=== PATIENT | female | born 1970 | race Caucasian/White ===

== ENCOUNTER 2019-08-11 19:03 | Emergency (ER) | payer OTHER ==
[~2019-08-11] VITALS: Ht 165.1 cm; Wt 86.2 kg
[~2019-08-11 19:03] MED LIST: ACET500T33 PO; BIOT1CAP3 PO; CETI10CA PO; FESO4TAB PO; FOLI1TAB16 PO; LEVO150T PO; METO-239 PO; MULT-208 PO; TOPI25TA52 PO; synth
[2019-08-11] MEDS ORDERED: HYDROcodone/APAP 5/325MG 1 TAB TABLET PO ONE (19:30)
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
[2019-08-11 21:16] VITALS: BP 103/65
[2019-08-11] MEDS ORDERED: CYCL5TAB PO (21:29)
[2019-08-11] MEDS ORDERED: HYDR-3164 PO (21:29)
== END 2019-08-11 21:40 | disposition home or self-care (01) ==
LOC: ER 19:03
DX: M54.2 Cervicalgia (principal); V89.2XXA Person injured in unspecified motor-vehicle accident, traffic, initial encounter; W22.10XA Striking against or struck by unspecified automobile airbag, initial encounter; R51 Headache; Y93.89 Activity, other specified; Y92.89 Other specified places as the place of occurrence of the external cause; Y99.8 Other external cause status
CPT/HCPCS: 70450; 72125; 99284